=== PATIENT | female | born 1940 | race Caucasian/White ===

== ENCOUNTER 2017-01-25 11:05 | Outpatient (CLI) | payer MEDICARE, OTHER | END 2017-01-25 11:06 | disposition home or self-care (01) | DX: N28.9 Disorder of kidney and ureter, unspecified (principal); E74.39 Other disorders of intestinal carbohydrate absorption ==

== ENCOUNTER 2017-02-24 09:30 | Outpatient (CLI) | payer MEDICARE, OTHER ==
[2017-02-26 21:53] LABS: TEST RESULT REPORT (())
== END 2017-02-24 09:31 | disposition home or self-care (01) ==
LOC: LAB.R 09:30
PROVIDERS: ATTEND Family Medicine
DX: R19.7 Diarrhea, unspecified (principal)
CPT/HCPCS: 81599; 87045; 87046; 87177; 87209; 87329; 87493

== ENCOUNTER 2017-08-30 08:00 | Outpatient (CLI) | payer MEDICARE, OTHER | END 2017-08-30 08:01 | disposition home or self-care (01) | LOC: LAB.R 08:00 | PROVIDERS: ATTEND Registered Nurse | DX: N39.498 Other specified urinary incontinence (principal) | CPT/HCPCS: 87086 ==

== ENCOUNTER 2017-11-24 16:23 | Outpatient (CLI) | payer MEDICARE, OTHER | END 2017-11-24 23:59 | disposition home or self-care (01) | LOC: LAB.R 16:23 | PROVIDERS: ATTEND Registered Nurse | DX: R32 Unspecified urinary incontinence (principal) | CPT/HCPCS: 87086 ==

== ENCOUNTER 2017-12-13 08:00 | Outpatient (CLI) | payer MEDICARE, OTHER | END 2017-12-13 23:59 | disposition home or self-care (01) | LOC: LAB.R 08:00 | PROVIDERS: ATTEND Registered Nurse | DX: R30.0 Dysuria (principal) | CPT/HCPCS: 87086 ==

== ENCOUNTER 2018-06-15 07:10 | Observation (INO) | payer MEDICARE, OTHER ==
--- NOTE | 2018-06-15 07:39 | ED Physician Documentation ---
History of Present Illness - Stated complaint Stated Complaint: JAW/STOMACH PX - Chief complaint Chief Complaint: General - Additonal information Additional information: hx from pt 78 female pmhx HTN HLD 4 AM developed "knots in my stomach", L shoulder, R jaw pain, nausea no soa or diaphoresis she attributes to her recent flu shot sx have subsided but not gone yet no bad food no travel no leg swelling still has GB at ham and cheese sanswiches last night no hx CAD all to sulfa Review of Systems Constitutional: denies: Fever, Chills Nose: reports: Other (jaw pain) Cardiac: denies: Chest pain / pressure Respiratory: denies: Dyspnea GI: reports: Abdominal Pain, Nausea Musculoskeletal: reports: Joint pain (shoulder pain). denies: Back pain Endocrine: denies: Easy bruising / bleeding Immunocompromised: denies: Immunocompromised PD PAST MEDICAL HISTORY - Present Medications Home Medications: Ambulatory Orders Medication Instructions Recorded Confirmed Chlorthalidone 25 mg PO DAILY 06/15/18 06/15/18 Fluticasone [Flonase] 2 spray VIKA DAILY PRN 06/15/18 06/15/18 Gemfibrozil 600 mg PO 0730,1630 06/15/18 06/15/18 Lisinopril 20 mg PO DAILY 06/15/18 06/15/18 Oxybutynin Chloride [Ditropan Xl] 10 mg PO DAILY 06/15/18 06/15/18 Ropinirole HCl 1 mg PO QPM 06/15/18 06/15/18 Rosuvastatin Calcium 10 mg PO QPM 06/15/18 06/15/18 - Allergies Allergies/Adverse Reactions: Allergies Allergy/AdvReac Type Severity Reaction Status Date / Time Sulfa (Sulfonamide AdvReac Nausea Verified 06/15/18 08:21 Antibiotics) PD ED PE NORMAL - Vitals Vital signs reviewed: Yes - General General: Alert and oriented X 3 - HEENT HEENT: PERRL - Neck Neck: Supple, no meningeal sign - Cardiac Cardiac: RRR - Respiratory Respiratory: No respiratory distress, Clear bilaterally - Abdomen Abdomen: Soft, Other (TTP RUQ neg murphys) - Derm Derm: Normal color - Extremities Extremities: No edema, No calf tenderness / cord - Neuro Neuro: Alert and oriented X 3 Results - Vitals Vitals: Vital Signs - 24 hr 06/15/18 06/15/18 06/15/18 07:16 08:38 10:50 Temperature 37 C 36.8 C Heart Rate 77 63 65 Respiratory 17 15 20 Rate Blood Pressure 152/75 H 140/69 H 120/67 O2 Saturation 96 99 98 06/15/18 13:23 Temperature Heart Rate 63 Respiratory 18 Rate Blood Pressure 141/71 H O2 Saturation 99 Oxygen O2 Source Room air - EKG (time done) 0739 Rate: Rate (enter#) (63) Rhythm: NSR [place]: Normal Intervals: Normal [place] QRS: Normal Ischemia: Normal ST segments - Labs Labs: Laboratory Tests 06/15/18 06/15/18 06/15/18 07:33 07:33 07:33 WBC 3.7 L RBC 4.28 Hgb 13.2 Hct 37.8 MCV 88.3 MCH 30.9 MCHC 34.9 RDW 13.0 Plt Count 224 MPV 7.5 L Neut # (Auto) 3.0 Lymph # (Auto) 0.4 L [place] # (Auto) 0.2 Eos # (Auto) 0.1 Baso # (Auto) 0.0 Absolute Nucleated RBC 0.00 Nucleated RBC % 0.0 Sodium 135 Potassium 3.8 Chloride 101 Carbon Dioxide 23 Anion Gap 11.0 BUN 27 H Creatinine 1.0 Estimated GFR (MDRD) 54 L Glucose 130 H Calcium 10.1 Total Bilirubin 1.1 H AST 19 ALT 16 Alkaline Phosphatase 74 Troponin I < 0.04 Total Protein 7.3 Albumin 4.4 Globulin 2.9 Albumin/Globulin Ratio 1.5 Lipase 37 - Rads (name of study) CXR Radiology: See rad report (NACPD) CTAP Radiology: See rad report (no acute process, absent R kidney, 3.8 cm R ovarian cyst rec outpt sono follow up) ruq sono Radiology: See rad report (no biliary dz) PD MEDICAL DECISION MAKING - ED course ED course: epigastric pain rad to shoulder and jaw with associated nausea EKG s ischemia 1st trop approx 3 hr post onset neg CXR CT sono show no bilairy dz AAA etc as alternate cause for sx concern for ACS will req obs for serial CE echo etc pt madvised of ovarian cyst and need for up sono pain resolved now gave asa - Sepsis Event Vital Signs: Vital Signs - 24 hr 09/06/15/18 06/15/18 07:16 08:38 10:50 Temperature 37 C 36.8 C Heart Rate 77 63 65 Respiratory 17 15 20 Rate Blood Pressure 152/75 H 140/69 H 120/67 O2 Saturation 96 99 98 06/15/18 13:23 Temperature Heart Rate 63 Respiratory 18 Rate Blood Pressure 141/71 H O2 Saturation 99 Oxygen O2 Source Room air Departure - Departure Disposition: ED Place in Observation Clinical Impression: Epigastric pain, Jaw pain Shoulder pain, acute Qualifiers: Laterality: left Qualified Code(s): M25.512 - Pain in left shoulder Condition: Good Discharge Date/Time: 06/15/18 15:52
[2018-06-15 07:40] LABS: EOSINOPHILS # (AUTO) 0.1 10^3/uL (0.0-0.7); EOSINOPHILS % (AUTO) 1.5 %; HGB - HEMOGLOBIN 13.2 g/dL (12.0-16.0); LYMPHOCYTES # (AUTO) 0.4 10^3/uL (1.5-3.5); LYMPHOCYTES % (AUTO) 10.7 %; MEAN CORPUSCULAR HEMOGLOBIN 30.9 pg (27.0-31.0); MEAN CORPUSCULAR HGB CONC 34.9 g/dL (32.0-36.0); MEAN CORPUSCULAR VOLUME 88.3 fL (81.0-99.0); MEAN PLATELET VOLUME 7.5 fL (7.9-10.8); MONOCYTES # (AUTO) 0.2 10^3/uL (0.0-1.0); NEUTROPHILS % (AUTO) 80.8 %; PLT - PLATELET COUNT 224 10^3/uL (130-450); RED BLOOD COUNT 4.28 10^6/uL (4.20-5.40); WHITE BLOOD COUNT 3.7 x10^3/uL (4.8-10.8)
[2018-06-15] MEDS ORDERED: ONDANSETRON 4 MG/2 ML VIAL IVP STA ×2 (07:40→13:15)
[2018-06-15] MEDS ORDERED: MORPHINE 2 MG/ML CARPUJECT IVP STA (07:40)
[2018-06-15 07:59] LABS: ALBUMIN 4.4 g/dL (3.2-5.5); ALBUMIN/GLOBULIN RATIO 1.5 (1.0-2.2); BILIRUBIN,TOTAL 1.1 mg/dL (0.2-1.0); CALCIUM 10.1 mg/dL (8.5-10.3); TOTAL PROTEIN 7.3 g/dL (6.7-8.2)
--- NOTE | 2018-06-15 08:04 | XRAY Report ---
Reason: chest pain Procedure Date: 06/15/2018 Accession Number: [id number] / [id number] Procedure: XR - Chest 1 View X-Ray CPT Code: 99867 FULL RESULT: EXAM: CHEST RADIOGRAPHY EXAM DATE: 06/15/2018 07:46 AM. CLINICAL HISTORY: Chest pain. COMPARISON: CHEST 2 VIEW PA/LAT 11/07/2014 1:27 PM. TECHNIQUE: 1 view. FINDINGS: Lungs/Pleura: No focal opacities evident. No pleural effusion. No pneumothorax. Mediastinum: Within exam limitations, the cardiomediastinal contour is normal. Other: Bilateral shoulder arthroplasty hardware is partially visualized. No acute osseous abnormality. IMPRESSION: No acute cardiopulmonary abnormality. RADIA
--- NOTE | 2018-06-15 08:16 | CT Report ---
Reason: upper abd pain rad to shoulder Procedure Date: 06/15/2018 Accession Number: [id number] / [id number] Procedure: CT - Abdomen/Pelvis W/O CPT Code: FULL RESULT: EXAM: CT ABDOMEN AND PELVIS WITHOUT CONTRAST EXAM DATE: 06/15/2018 07:53 AM. CLINICAL HISTORY: Upper abdominal pain radiating to left shoulder. COMPARISONS: LUMBAR SPINE COMPLETE 02/16/2018 8:42 AM. TECHNIQUE: Routine helical CT imaging was performed through the abdomen and pelvis. IV contrast: None. Enteric contrast: No. Reconstructions: Coronal and sagittal. In accordance with CT protocol optimization, one or more of the following dose reduction techniques were utilized for this exam: automated exposure control, adjustment of mA and/or KV based on patient size, or use of iterative reconstructive technique. FINDINGS: Lung Bases: Unremarkable. Liver: Unremarkable noncontrast appearance. Gallbladder/Bile Ducts: Unremarkable. Spleen: Unremarkable. Pancreas: Unremarkable. Adrenal Glands: Unremarkable. Kidneys: The right kidney is absent. There are no surgical clips at the expected occasion of the right kidney, which may indicate congenital absence. The left kidney is unremarkable. No left hydronephrosis or calculi. Peritoneal Cavity/Bowel: Unremarkable. No free fluid, free air or adenopathy. No evidence of bowel obstruction or abnormal colonic stool burden. The appendix is not visualized, but there is no inflammatory change or fluid adjacent to the cecum to suggest acute appendicitis. Pelvic Organs: The bladder is unremarkable. The uterus appears to be surgically absent. There is a right adnexal cyst measuring 3.8 x 3.2 cm (series 3 image 65). Vasculature: No aneurysms or other significant abnormality. Bones: No acute osseous abnormality or bone lesion. There is moderate degenerative disk change at the L5-S1 level. There is mild degenerative osteoarthritis of the bilateral hips. Other: None. IMPRESSION: 1. No acute inflammatory or obstructive abnormality apparent on this noncontrast exam. 2. 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 The left kidney is unremarkable. 3. Right adnexal cyst measuring up to 3.8 cm. Further evaluation is recommended with nonemergent pelvic ultrasound. Management above is based on recommendations outlined in an ACR White Paper: Emiliano Reyes et al. Managing Incidental Findings on Abdominal and Pelvic CT and MRI, Part 1: White Paper of the ACR Incidental Findings Committee II on Adnexal Findings. Journal of the [employer] 10, 675-681 (2013). RADIA
[2018-06-15] MEDS ORDERED: HYDROmorphone 1 MG/ML CARPUJECT IVP STA (09:16)
--- NOTE | 2018-06-15 10:51 | Ultrasound Report ---
Reason: epigastric pain elev bili Procedure Date: 06/15/2018 Accession Number: [id number] / [id number] Procedure: US - Abdomen Limited CPT Code: FULL RESULT: EXAM: ABDOMEN ULTRASOUND LIMITED, RUQ EXAM DATE: 06/15/2018 09:48 AM. CLINICAL HISTORY: Epigastric pain elev bili. COMPARISON: CT 06/15/2018. TECHNIQUE: Real-time scanning was performed with static images obtained. FINDINGS: Liver: Homogeneous without focal mass. 16.5 cm. Main portal vein flow: Hepatopetal. Gallbladder: No stones, wall thickening, or sonographic Triana's sign. Biliary System: CBD measures 3.6 mm. No intrahepatic or extrahepatic ductal dilatation. Other: Right kidney is surgically absent. IMPRESSION: 1. No cholelithiasis or biliary ductal dilation. RADIA
[2018-06-15] MEDS ORDERED: ASPIRIN CHEW 81 MG TABLET PO STA (12:57)
[2018-06-15] MEDS ORDERED: SODIUM CHLORIDE FLUSH 0.9% 10 ML SYRINGE IVP PRN (14:48)
--- NOTE | 2018-06-15 15:10 | HISTORY & PHYSICAL EXAMINATION ---
Chief Complaint - Chief Complaint Chief Complaint: left shoulder, jaw pain, nausea History of Present Illness - Admitted From Admitted From:: ED - History Obtained From Records Reviewed: yes History obtained from: chart review, patient Exam Limitations: none - History of Present Illness HPI Comment/Other: Ileana Ruiz is a 78-year old female with a past medical history of hypertension, hyperlipidemia, restless leg syndrome, urinary incontinence, status post right kidney removal at age 13, bilateral should arthroplasty, shingles, pneumonia, seasonal allergies, and chronic low back pain. The patient received an influenza vaccination yesterday from her PCP in preparation for a trip to the [facility]. The last time that she got this shot, she remembers similar symptoms that she had today upon presentation to the ED. The patient states that she had problems falling asleep last evening as her bilateral jaw w as feeling sore. She awoke about 4AM, and she continued to have jaw pain, now accompanied by low mid-sternal epi-gastric pain. She states that she did not eat anything out of her normal last night. Since the pain did not subside, she presented to the ED. She was given aspirin in the ED, and her pain resolved. She denied any associated symptoms at the time of her chest pain, such as nausea, diaphoresis, dizziness, headaches, numbness or tingling to extremities, changes in vision or hearing, or shortness of breath. Labs showed no abnormalities in her CBC, and an elevated BUN of 27, a decreased GFR of 54, an elevated glucose of 130, an elevated bilirubin of 1.1 and a negative troponin. Upon exam the patient has no abnormal findings, and has had a resolution of her jaw and chest discomfort. She will be admitted to observation for serial troponins and an echocardiogram. History - Past Medical History Cardiovascular: reports: Hypertension, High cholesterol Respiratory: reports: Pneumonia, Other (sinusitis) Neuro: reports: None Endocrine/Autoimmune: reports: None GI: reports: GERD CYBERATHLETE: reports: Fibroids : reports: Chronic bladder infection, Nocturia, Frequency HEENT: reports: Chronic sinusitis Psych: reports: None Musculoskeletal: reports: Osteoarthritis MRSA Hx?: No Other Past Medical History: restless legs - Past Surgical History General: reports: Appendectomy, Other Ortho: reports: Shoulder arthroplasty /CYBERATHLETE: reports: Hysterectomy HEENT: reports: Tonsil/Adenoidectomy - Family & Social History Family History: Mother: , Father: , Sister: Alive and Well Family History Comment/Other: The patient's mother of natural causes at age 94, her father at a young age in an accident, but his father had cardiac disease. She has one sister who had lung cancer caused by frequent x-rays as a child, and is alive and well. Living arrangement: At home Living Situation: With spouse/s.o. 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 She is to her , Yeyo. They had 2 biological children and adopted 3 others. They live independently. The patient denies tobacco, alcohol, or illicit drug use. She wishes to be a full code. - Substance History Use: Uses substance without health or social issues: NONE Abuse: Recurrent use of substance despite neg consequences: NONE Dependence: Experiences withdrawal or developed tolerances: NONE - POLST Patient has POLST: No POLST Status: Full Code Meds/Allgy - Home Medications Home Medications: Ambulatory Orders Medication Instructions Recorded Confirmed Chlorthalidone 25 mg PO DAILY 06/15/18 06/15/18 Fluticasone [Flonase] 2 spray VIKA DAILY PRN 06/15/18 06/15/18 Gemfibrozil 600 mg PO 0730,1630 06/15/18 06/15/18 Lisinopril 20 mg PO DAILY 06/15/18 06/15/18 Oxybutynin Chloride [Ditropan Xl] 10 mg PO DAILY 06/15/18 06/15/18 Ropinirole HCl 1 mg PO QPM 06/15/18 06/15/18 Rosuvastatin Calcium 10 mg PO QPM 06/15/18 06/15/18 - Allergies Allergies/Adverse Reactions: Allergies Allergy/AdvReac Type Severity Reaction Status Date / Time Sulfa (Sulfonamide AdvReac Nausea Verified 06/15/18 08:21 Antibiotics) Review of Systems - Eyes Eyes: reports: Corrective lenses - Ears, Nose & Throat Ears, Nose & Throat: reports: Nasal congestion, Postnasal drainage - Respiratory Respiratory: reports: Cough - Gastrointestinal Gastrointestinal: reports: Reflux/heartburn - Genitourinary Genitourinary: reports: Dysuria, Incontinence, Nocturia - Musculoskeletal Musculoskeletal: reports: Back pain - Hematologic/Lymphatic Hematologic/Lymphatic: reports: Recurrent infections - All Other Systems All Other Systems: reports: Reviewed and negative Prior Level of Functionality: Independent without assisting devices. Exam - Vital Signs Reviewed Vital Signs: Yes Vital Signs: Vital Signs x48h Temp Pulse Resp BP Pulse Ox 06/15/18 13:23 63 18 141/71 H 99 06/15/18 10:50 36.8 C 65 20 120/67 98 06/15/18 08:38 63 15 140/69 H 99 06/15/18 07:16 37 C 77 17 152/75 H 96 - Physical Exam General Appearance: positive: No acute distress, Alert Eyes Bilateral: positive: Normal inspection, PERRL ENT: positive: ENT inspection nml, Pharynx nml, No signs of dehydration Neck: positive: Nml inspection, Thyroid nml, No JVD, Trachea midline Respiratory: positive: Chest non-tender, No respiratory distress, Breath sounds nml Cardiovascular: positive: Regular rate & rhythm, No murmur, No gallop Peripheral Pulses: positive: 2+ Abdomen: positive: Non-tender, No organomegaly, Nml bowel sounds, No distention Back: positive: Nml inspection Skin: positive: Color nml, No rash, Warm, Dry Extremities: positive: Non-tender, Full ROM, Nml appearance, No pedal edema Neurologic/Psychiatric: positive: Oriented x3, CN's nml (2-12), Motor nml, Sensation nml, Mood/affect nml Reflexes: Bicep (R): 3+, Bicep (L): 3+ Conclusion/Plan - Problem List (1) Chest pain Conclusion/Plan: The patient states that she had less severe, similar symptoms after receiving an influenza vaccine that was about 5 years ago. The patient just got a flu shot yesterday, and by last evening began having bilateral jaw pain after lying down at bedtime. This pain did not keep her awake and she fell asleep until this morning at 4AM. The jaw pain was still present, and now she had epi-gastric, low mid-chest pain that was sharp and did not go away. She presented to the ED, was given aspirin, and upon my exam is pain free. Her first troponin was negative. Plan: Keep in observation overnight and obtain an echocardiogram, serial troponins, telemetry. (2) Adverse reaction to vaccine Conclusion/Plan: The patient states that for the past 2 times after getting an influenza vaccine, she has had adverse reactions. Plan: Advise further workup with PCP. Qualifiers: Encounter type: subsequent encounter Qualified Code(s): T50.Z95D - Adverse effect of other vaccines and biological substances, subsequent encounter (3) Restless leg syndrome Conclusion/Plan: The patient has had this for several years and is prescribed ropinirole at home. I have continued this for hospital use. Plan: Continue to monitor, give home med. (4) Hypertension Conclusion/Plan: The patient is prescribed lisinopril at home and upon admission she was noted to have a blood pressure of 120/67. Plan: Continue home meds, and monitor vital signs. Qualifiers: Hypertension type: essential hypertension Qualified Code(s): I10 - Essential (primary) hypertension (5) Hyperlipidemia Conclusion/Plan: The patient is prescribed a statin at home, which has been continued here. She is also prescribed gemfibrozil, so I will check a triglyceride level. She is noted to have an elevated glucose level of 130 upon admission. Plan: Check labs, and continue meds. (6) Urinary incontinence Conclusion/Plan: The patient has a history of a hysterectomy and has had urinary incontinence for the past few years. She states that she has also suffered from frequent UTIs, but denies current dysuria. She is prescribed oxybutynin at home, which continues here. She also attends a therapist for this to strengthen her pelvic floor muscles. Plan: Continue med, and monitor. (7) Sinusitis Conclusion/Plan: The patient is prescribed Flonase at home and admits to both seasonal allergies and this condition for several years. Plan: Continue med. Qualifiers: Sinusitis location: unspecified location - Lab Results Lab results reviewed: Yes Fish Bones: 06/16/18 05:51 06/16/18 05:51 - Diagnostic Imaging Results Diagnostic Imaging Results: positive: Prelim report reviewed Core Measures - Anticipated LOS I expect patient to be DC'd or transferred within 96 hours.: Yes - DVT/VTE - Prophylaxis VTE/DVT Device ordered at admit?: Yes VTE/DVT Prophylaxis med ordered at admit?: No Not Ordered - Medical Reason: Contraindicated - Stroke - Rehab Assessment Rehab services assessment to be ordered?: No Not Ordered - Medical Reason: Contraindicated - AMI - Statin at Admit Aspirin Prescribed on Admit: Yes
[2018-06-15] MEDS ORDERED: MORPHINE 2 MG/ML CARPUJECT IVP PRN (15:51)
[2018-06-15] MEDS ORDERED: FLUTICASONE NASAL SPRAY NAS PRN (15:52)
[2018-06-15] MEDS: GEMFIBROZIL 600 MG TABLET PO SCH (16:49)
[2018-06-15] MEDS: GI COCKTAIL 120 ML BOTTLE PO SCH ×2 (16:49→21:05)
[2018-06-15] MEDS: SODIUM CHLORIDE FLUSH 0.9% 10 ML SYRINGE IVP SCH (16:49)
[2018-06-15 19:49] LABS: HB2 TOTAL 13.5 g/dL; HEMOGLOBIN A1C 0.56 g/dL; HEMOGLOBIN A1C % 5.9 % (4.6-6.2)
[2018-06-15] MEDS ORDERED: rOPINIRole 1 MG TABLET PO SCH (21:00)
[2018-06-15] MEDS ORDERED: ATORVASTATIN 10 MG TABLET PO SCH (21:00)
[2018-06-15] MEDS ORDERED: GI COCKTAIL 120 ML BOTTLE PO PRN (21:59)
[2018-06-16] MEDS: SODIUM CHLORIDE FLUSH 0.9% 10 ML SYRINGE IVP SCH ×2 (00:54→08:47)
[2018-06-16 06:12] LABS: BASOPHILS % (AUTO) 0.8 %; EOSINOPHILS % (AUTO) 4.6 %; HGB - HEMOGLOBIN 11.8 g/dL (12.0-16.0); LYMPHOCYTES % (AUTO) 46.1 %; MEAN CORPUSCULAR HEMOGLOBIN 31.2 pg (27.0-31.0); MEAN CORPUSCULAR HGB CONC 35.3 g/dL (32.0-36.0); MEAN CORPUSCULAR VOLUME 88.4 fL (81.0-99.0); MEAN PLATELET VOLUME 7.5 fL (7.9-10.8); MONOCYTES % (AUTO) 14.9 %; NEUTROPHILS % (AUTO) 33.6 %; PLT - PLATELET COUNT 182 10^3/uL (130-450); RED BLOOD COUNT 3.78 10^6/uL (4.20-5.40); RED CELL DISTRIBUTION WIDTH 13.2 % (12.0-15.0); WHITE BLOOD COUNT 2.3 x10^3/uL (4.8-10.8)
[2018-06-16 06:22] LABS: BAND NEUTROPHILS % (MANUAL) 0 %
[2018-06-16] MEDS: GEMFIBROZIL 600 MG TABLET PO SCH (06:28)
[2018-06-16 06:31] LABS: ALBUMIN 3.6 g/dL (3.2-5.5); ALBUMIN/GLOBULIN RATIO 1.4 (1.0-2.2); ALKALINE PHOSPHATASE 57 IU/L (42-121); ALT ALANINE AMINOTRANSFERASE 14 IU/L (10-60); AST ASPARTATE AMINOTRANSFERASE 18 IU/L (10-42); BILIRUBIN,TOTAL 0.4 mg/dL (0.2-1.0); BUN - BLOOD UREA NITROGEN 26 mg/dL (6-20); CALCIUM 9.4 mg/dL (8.5-10.3); CARBON DIOXIDE - CO2 26 mmol/L (21-32); CHLORIDE 101 mmol/L (101-111); CHOL/HDL RATIO 2.6 (<4.4); CHOLESTEROL 142 mg/dL; GFR - MDRD 54 (>89); GLUCOSE 109 mg/dL (70-100); HDL CHOLESTEROL 54 mg/dL; LDL CHOLESTEROL,CALCULATED 77 mg/dL; LDL/HDL RATIO 1.4 (<4.4); SODIUM 135 mmol/L (135-145); TOTAL PROTEIN 6.2 g/dL (6.7-8.2); VLDL CHOLESTEROL 11 mg/dL
[2018-06-16 06:51] LABS: ABNORMAL LYMPHS % (MANUAL) 1 %; EOSINOPHILS # (MANUAL) 0.2 10^3/uL (0-0.7); LYMPHOCYTES # (MANUAL) 1.1 10^3/uL (1.5-3.5); LYMPHOCYTES % (MANUAL) 48 %; METAMYELOCYTES % (MANUAL) 1 %; MONOCYTES # (MANUAL) 0.3 10^3/uL (0.0-1.0); NEUTROPHILS # (MANUAL) 0.7 10^3/uL (1.5-6.6); NEUTROPHILS % (MANUAL) 30 %; RBC MORPHOLOGY (MULTIPLE) NORMAL APPEARANCE (NORMAL)
[2018-06-16 06:52] LABS: DIFFERENTIAL COMMENT MANUAL DIFFERENTIAL; PLATELET ESTIMATE, MANUAL NORMAL (130-450,000) (NORMAL)
[2018-06-16 07:46] VITALS: BP 129/64
[2018-06-16] MEDS ORDERED: TOLTERODINE LA 2 MG CAPSULE PO SCH (09:00)
[2018-06-16] MEDS ORDERED: LISINOPRIL 20 MG TABLET PO SCH (09:00)
[2018-06-16] MEDS ORDERED: POLYETHYLENE GLYCOL 3350 17 GM PACKET PO SCH (09:00)
--- NOTE | 2018-06-16 10:09 | Discharge Plan ---
Discharge Plan Disposition: 01 Home, Self Care Condition: Good Diet: Regular Activity Restrictions: No Restrictions Shower Restrictions: No Driving Restrictions: No Weight Bearing: Full Weight Additional Instructions or Follow Up instructions: You were admitted with jaw and mid-epigastric pain, that was resolved with aspirin. You were monitored overnight, had 3 negative cardiac blood tests, and an echocardiogram was completed which shows no evidence of damage. If you find that you have heart burn symptoms, you can take over the counter Prilosec and Zantac. Please avoid further influenza vaccines and you may benefit for further work up. Please see your PCP within one week. No Smoking: If you smoke, Please STOP! Call for help. Follow-up with: Estephania Howard MD [Primary Care Provider] -
--- NOTE | 2018-06-16 10:12 | DISCHARGE SUMMARY ---
Discharge Summary Admit Date: 06/15/18 Discharge Date: 06/16/18 Discharging Provider: UNRULY Ram Primary Care Provider: Estephania Howard Code Status: Attempt Resuscitation Condition at Discharge: Good Discharge Disposition: 01 Home, Self Care - DIAGNOSES Admission Diagnoses: Chest pain, unspecified (R07.9) Adverse effect of other vaccines and biological substances, initial encounter (T50.Z95A) Restless legs syndrome (G25.81) Essential (primary) hypertension (I10) Hyperlipidemia, unspecified (E78.5) Unspecified urinary incontinence (R32) Chronic sinusitis, unspecified (J32.9) Discharge Diagnoses with Status of Each Condition: Chest pain (R07.9) resolved. Restless leg syndrome (G25.81) chronic, stable. Hypertension (I10) chronic, stable. Hyperlipidemia (E78.5) chronic, stable. Urinary incontinence (R32) chronic, stable. Adverse reaction to vaccine (T50.Z95A) 2nd episode, stable. Sinusitis (J32.9)chronic, stable. - HPI History of Present Illness: Ileana Ruiz is a 78-year old female with a past medical history of hypertension, hyperlipidemia, restless leg syndrome, urinary incontinence, status post right kidney removal at age 13, bilateral should arthroplasty, shingles, pneumonia, seasonal allergies, and chronic low back pain. The patient received an influenza vaccination yesterday from her PCP in preparation for a trip to the [facility]. The last time that she got this shot, she remembers similar symptoms that she had today upon presentation to the ED. The patient states that she had problems falling asleep last evening as her bilateral jaw was feeling sore. She awoke about 4AM, and she continued to have jaw pain, now accompanied by low mid-sternal epi-gastric pain. She states that she did not eat anything out of her normal last night. Since the pain did not subside, she presented to the ED. She was given aspirin in the ED, and her pain resolved. She denied any associated symptoms at the time of her chest pain, such as nausea, diaphoresis, dizziness, headaches, numbness or tingling to extremities, changes in vision or hearing, or shortness of breath. Labs showed no abnormalities in her CBC, and an elevated BUN of 27, a decreased GFR of 54, an elevated glucose of 130, an elevated bilirubin of 1.1 and a negative troponin. Upon exam the patient has no abnormal findings, and has had a resolution of her jaw and chest discomfort. She will be admitted to observation for serial troponins and an echocardiogram. - HOSPITAL COURSE Hospital Course: (1) Chest pain The patient states that she had less severe, similar symptoms after receiving an influenza vaccine that was about 5 years ago. The patient just got a flu shot yesterday, and by last evening began having bilateral jaw pain after lying down at bedtime. This pain did not keep her awake and she fell asleep until this morning at 4AM. The jaw pain was still present, and now she had epi-gastric, low mid-chest pain that was sharp and did not go away. She presented to the ED, was given aspirin, and upon my exam is pain free. Serial troponins x3 were all negative. The patient was keep in observation overnight and monitored on telemetry. She underwent an echocardiogram, and preliminary results show no abnormalities. The patient was free of pain at the time of discharge and denied any episodes since being in the ED. The patient was encouraged to take over the counter PPIs or H2 blockers for heart burn. (2) Adverse reaction to vaccine The patient states that for the past 2 times after getting an influenza vaccine, she has had adverse reactions. She has been encouraged to get further work up with her PCP. (3) Restless leg syndrome The patient has had this for several years and is prescribed ropinirole at home. This condition is stable. (4) Hypertension The patient is prescribed lisinopril at home and upon admission she was noted to have a blood pressure of 120/67. There were no changes made to her antihypertensives. (5) Hyperlipidemia The patient is prescribed a statin at home, which has been continued here. She is also prescribed gemfibrozil, so I will check a triglyceride level. She is noted to have an elevated glucose level of 130 upon admission. She has a normal triglyceride level of 60, normal lipid panel and a normal TSH of 3.79. (6) Urinary incontinence The patient has a history of a hysterectomy and has had urinary incontinence for the past few years. She states that she has also suffered from frequent UTIs, but denies current dysuria. She is prescribed oxybutynin at home, which continues here. She also attends a therapist for this to strengthen her pelvic floor muscles. (7) Sinusitis The patient is prescribed Flonase at home and admits to both seasonal allergies and this condition for several years. Disposition: The patient was anxious to return home and she is planning on traveling to the [facility]. The patient did not require oxygen, was ambulatory, and no longer had chest pain or jaw pain. - ALLERGIES Allergies/Adverse Reactions: Allergies Allergy/AdvReac Type Severity Reaction Status Date / Time Sulfa (Sulfonamide AdvReac Nausea Verified 06/15/18 08:21 Antibiotics) - MEDICATIONS Home Medications: Ambulatory Orders Medication Instructions Recorded Confirmed Chlorthalidone 25 mg PO DAILY 06/15/18 06/15/18 Fluticasone [Flonase] 2 spray VIKA DAILY PRN 06/15/18 06/15/18 Gemfibrozil 600 mg PO 0730,1630 06/15/18 06/15/18 Lisinopril 20 mg PO DAILY 06/15/18 06/15/18 Oxybutynin Chloride [Ditropan Xl] 10 mg PO DAILY 06/15/18 06/15/18 Ropinirole HCl 1 mg PO QPM 06/15/18 06/15/18 Rosuvastatin Calcium 10 mg PO QPM 06/15/18 06/15/18 - PHYSICAL EXAM AT DISCHARGE General Appearance: positive: No acute distress, Alert Eyes Bilateral: positive: Normal inspection, PERRL ENT: positive: ENT inspection nml, Pharynx nml, No signs of dehydration Neck: positive: Nml inspection, Thyroid nml, No JVD, Trachea midline Respiratory: positive: Chest non-tender, No respiratory distress, Breath sounds nml Cardiovascular: positive: Regular rate & rhythm, No murmur, No gallop Peripheral Pulses: positive: 2+ Abdomen: positive: Non-tender, No organomegaly, Nml bowel sounds, Other (rounded, soft) Back: positive: Nml inspection Skin: positive: Color nml, No rash, Warm, Dry Extremities: positive: Non-tender, Full ROM, Nml appearance, No pedal edema Neurologic/Psychiatric: positive: Oriented x3, CN's nml (2-12), Motor nml, Sensation nml, Mood/affect nml Reflexes: Bicep (R): 4+, Bicep (L): 4+ - LABS Result Diagrams: 06/16/18 05:51 06/16/18 05:51 - DIAGNOSTIC IMAGING Diagnostic Imaging Results: Final report reviewed Diagnostic Imaging Results Comments: EXAM: CHEST RADIOGRAPHY EXAM DATE: 06/15/2018 07:46 AM. IMPRESSION: No acute cardiopulmonary abnormality. EXAM: CT ABDOMEN AND PELVIS WITHOUT CONTRAST EXAM DATE: 06/15/2018 07:53 AM. IMPRESSION: 1. No acute inflammatory or obstructive abnormality apparent on this noncontrast exam. 2. 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 The left kidney is unremarkable. 3. Right adnexal cyst measuring up to 3.8 cm. Further evaluation is recommended with nonemergent pelvic ultrasound. Management above is based on recommendations outlined in an ACR EXAM: ABDOMEN ULTRASOUND LIMITED, RUQ EXAM DATE: 06/15/2018 09:48 AM. IMPRESSION: 1. No cholelithiasis or biliary ductal dilation. ECHOCARDIOGRAM: Preliminary results 06/16/18 Overall LV systolic function is normal with an EF of 65-70%. No obvious valve abnormalities. - FOLLOW UP Follow Up: Disposition: 01 Home, Self Care Condition: Good Diet: Regular Activity Restrictions: No Restrictions Shower Restrictions: No Driving Restrictions: No Weight Bearing: Full Weight Additional Instructions or Follow Up instructions: You were admitted with jaw and mid-epigastric pain, that was resolved with a spirin. You were monitored overnight, had 3 negative cardiac blood tests, and an echocardiogram was completed which shows no evidence of damage. If you find that you have heart burn symptoms, you can take over the counter Prilosec and Zantac. Please avoid further influenza vaccines and you may benefit for further work up. Please see your PCP within one week. - TIME SPENT Time Spent in Discharge (Minutes): 50
== END 2018-06-16 11:24 | disposition home or self-care (01) ==
LOC: ED 07:10 → OBS 14:49
PROVIDERS: ADMIT Nurse Practitioner; ATTEND Nurse Practitioner
DX: R07.89 Other chest pain (principal); G25.81 Restless legs syndrome; R73.9 Hyperglycemia, unspecified; I10 Essential (primary) hypertension; E78.5 Hyperlipidemia, unspecified; R32 Unspecified urinary incontinence; J32.9 Chronic sinusitis, unspecified; G89.29 Other chronic pain; M54.9 Dorsalgia, unspecified; R35.0 Frequency of micturition; R35.1 Nocturia; T50.B95A Adverse effect of other viral vaccines, initial encounter; Y92.531 Health care provider office as the place of occurrence of the external cause; Z91.09 Other allergy status, other than to drugs and biological substances; N94.89 Other specified conditions associated with female genital organs and menstrual cycle; Z87.01 Personal history of pneumonia (recurrent); Z87.440 Personal history of urinary (tract) infections; Z90.79 Acquired absence of other genital organ(s); Z90.5 Acquired absence of kidney
CPT/HCPCS: 36415; 71045; 74176; 76705; 80053; 80061; 83036; 83690; 83735; 84443; 84478; 84484; 85025; 93005; 93306; 96374; 96375; 96376; 99284; A9270; G0378; J1170; 83721

== ENCOUNTER 2018-10-13 08:00 | Outpatient (CLI) | payer MEDICARE, OTHER ==
[2018-10-13 18:10] LABS: BILIRUBIN,URINE NEGATIVE (NEGATIVE); GLUCOSE, URINE (UA) NEGATIVE (NEGATIVE); KETONES,URINE (UA) NEGATIVE (NEGATIVE); LEUKOCYTE ESTERASE, URINE NEGATIVE (NEGATIVE); NITRITE,URINE NEGATIVE (NEGATIVE); OCCULT BLOOD,URINE TRACE-INTA (NEGATIVE); PROTEIN,URINE NEGATIVE (NEGATIVE); UROBILINOGEN,URINE 0.2 (NORMAL) E.U./dL (NORMAL)
[2018-10-13 18:11] LABS: CLARITY,URINE CLEAR (CLEAR)
== END 2018-10-13 23:59 | disposition home or self-care (01) ==
LOC: LAB.R 08:00
PROVIDERS: ATTEND Obstetrics & Gynecology
DX: R30.0 Dysuria (principal)
CPT/HCPCS: 81001; 81003; 87086

== ENCOUNTER 2018-10-23 16:37 | Outpatient (CLI) | payer MEDICARE, OTHER ==
--- NOTE | 2018-10-24 01:26 | Ultrasound Report ---
Reason: PELVIC PAIN, CHRONIC Procedure Date: 10/23/2018 Accession Number: [id number] / [id number] Procedure: US - Pelvic Complete CPT Code: FULL RESULT: EXAM: PELVIC ULTRASOUND EXAM DATE: 10/23/2018 04:59 PM. CLINICAL HISTORY: Pelvic pain, chronic. COMPARISON: ABDOMEN/PELVIS W/O 06/15/2018 7:52 AM. TECHNIQUE: Real-time transabdominal pelvic scan performed to identify the uterus and adnexa and as an overview of other pelvic structures, with static image documentation. Patient reportedly declined the transvaginal portion of the study. FINDINGS: Uterus: Removed. Ovaries: There is a known chronic right ovarian simple cyst, measuring 42 x 32 x 46 mm currently. No normal ovarian parenchyma seen. Left ovary not visualized but no left adnexal masses seen. Free Fluid: None. Other: None. IMPRESSION: 1. Chronic 4 cm right adnexal grossly simple cyst. SRU recommends annual follow-up in the postmenopausal patient. 2. Post hysterectomy. RADIA
== END 2018-10-23 16:38 | disposition home or self-care (01) ==
LOC: DI 16:37
PROVIDERS: ATTEND Obstetrics & Gynecology
DX: N94.89 Other specified conditions associated with female genital organs and menstrual cycle (principal); R10.2 Pelvic and perineal pain; Z90.710 Acquired absence of both cervix and uterus
CPT/HCPCS: 76856

== ENCOUNTER 2019-01-05 08:00 | Outpatient (CLI) | payer MEDICARE, OTHER | END 2019-01-05 23:59 | disposition home or self-care (01) | LOC: LAB.R 08:00 | PROVIDERS: ATTEND Obstetrics & Gynecology | DX: B37.3 Candidiasis of vulva and vagina (principal) | CPT/HCPCS: 87480; 87510; 87660 ==

== ENCOUNTER 2019-02-07 08:00 | Outpatient (CLI) | payer MEDICARE, OTHER ==
[2019-02-07 21:23] LABS: CANDIDA GROUP DNA NEGATIVE (NEGATIVE); CANDIDA KRUSEI DNA NEGATIVE (NEGATIVE); TRICHOMONAS VAGINALIS DNA NEGATIVE (NEGATIVE)
== END 2019-02-07 23:59 | disposition home or self-care (01) ==
LOC: LAB.R 08:00
PROVIDERS: ATTEND Obstetrics & Gynecology
DX: N76.6 Ulceration of vulva (principal)
CPT/HCPCS: 87661; 87801

== ENCOUNTER 2019-02-23 11:44 | Outpatient (CLI) | payer MEDICARE, OTHER | END 2019-02-23 11:45 | disposition home or self-care (01) | LOC: RT 11:44 | PROVIDERS: ATTEND Internal Medicine Gastroenterology | DX: R85.9 Unspecified abnormal finding in specimens from digestive organs and abdominal cavity (principal); I10 Essential (primary) hypertension | CPT/HCPCS: 93005 ==

== ENCOUNTER 2019-02-23 12:13 | Outpatient (CLI) | payer MEDICARE, OTHER ==
[2019-02-23 12:29] LABS: BASOPHILS % (AUTO) 0.8 %; EOSINOPHILS # (AUTO) 0.3 10^3/uL (0.0-0.7); EOSINOPHILS % (AUTO) 5.6 %; HGB - HEMOGLOBIN 12.7 g/dL (12.0-16.0); LYMPHOCYTES # (AUTO) 1.9 10^3/uL (1.5-3.5); LYMPHOCYTES % (AUTO) 38.8 %; MEAN CORPUSCULAR HEMOGLOBIN 30.1 pg (27.0-31.0); MEAN CORPUSCULAR HGB CONC 33.7 g/dL (32.0-36.0); MEAN CORPUSCULAR VOLUME 89.3 fL (81.0-99.0); MEAN PLATELET VOLUME 7.8 fL (7.9-10.8); MONOCYTES # (AUTO) 0.4 10^3/uL (0.0-1.0); MONOCYTES % (AUTO) 7.5 %; NEUTROPHILS # (AUTO) 2.4 10^3/uL (1.5-6.6); NEUTROPHILS % (AUTO) 47.3 %; PLT - PLATELET COUNT 254 10^3/uL (130-450); RED BLOOD COUNT 4.23 10^6/uL (4.20-5.40); RED CELL DISTRIBUTION WIDTH 13.3 % (12.0-15.0)
[2019-02-23 12:40] LABS: ALBUMIN 4.3 g/dL (3.2-5.5); ALBUMIN/GLOBULIN RATIO 1.5 (1.0-2.2); BILIRUBIN,TOTAL 0.9 mg/dL (0.2-1.0); CALCIUM 10.1 mg/dL (8.5-10.3); TOTAL PROTEIN 7.2 g/dL (6.7-8.2)
== END 2019-02-23 12:14 | disposition home or self-care (01) ==
LOC: LAB 12:13
PROVIDERS: ATTEND Internal Medicine Gastroenterology
DX: R19.5 Other fecal abnormalities (principal); I10 Essential (primary) hypertension
CPT/HCPCS: 36415; 80053; 85025

== ENCOUNTER 2019-02-26 06:03 | Day surgery (SDC) | payer MEDICARE, OTHER ==
[2019-02-26] MEDS ORDERED: LACTATED RINGERS 1,000 ML IV ONE (06:53)
[2019-02-26] MEDS ORDERED: fentaNYL 100 MCG/2 ML VIAL IVP ONE (08:30)
[2019-02-26] MEDS ORDERED: MIDAZOLAM 2 MG/2 ML VIAL IVP ONE (08:30)
[2019-02-26 10:20] VITALS: BP 122/75
== END 2019-02-26 06:04 | disposition home or self-care (01) ==
LOC: SDS 06:03
PROVIDERS: ATTEND Internal Medicine Gastroenterology
PROC: 0DBN8ZZ Excision of Sigmoid Colon, Via Natural or Artificial Opening Endoscopic (ICD-10-PCS; principal; 2019-02-26 07:30)
DX: R19.5 Other fecal abnormalities (principal); D12.5 Benign neoplasm of sigmoid colon; K57.30 Diverticulosis of large intestine without perforation or abscess without bleeding; I10 Essential (primary) hypertension
CPT/HCPCS: 45380; J7120

== ENCOUNTER 2019-05-03 08:00 | Outpatient (CLI) | payer MEDICARE, OTHER ==
[2019-05-03 19:17] LABS: BASOPHILS % (AUTO) 1.1 %; EOSINOPHILS # (AUTO) 0.3 10^3/uL (0.0-0.7); EOSINOPHILS % (AUTO) 6.6 %; HGB - HEMOGLOBIN 12.3 g/dL (12.0-16.0); LYMPHOCYTES # (AUTO) 1.8 10^3/uL (1.5-3.5); MEAN CORPUSCULAR HEMOGLOBIN 30.4 pg (27.0-31.0); MEAN CORPUSCULAR VOLUME 92.3 fL (81.0-99.0); MEAN PLATELET VOLUME 10.4 fL (7.9-10.8); MONOCYTES # (AUTO) 0.4 10^3/uL (0.0-1.0); NEUTROPHILS # (AUTO) 1.3 10^3/uL (1.5-6.6); PLT - PLATELET COUNT 248 10^3/uL (130-450); RED BLOOD COUNT 4.04 10^6/uL (4.20-5.40); RED CELL DISTRIBUTION WIDTH 12.3 % (12.0-15.0); WHITE BLOOD COUNT 3.8 x10^3/uL (4.8-10.8)
[2019-05-03 19:33] LABS: ALBUMIN 4.2 g/dL (3.2-5.5); ALBUMIN/GLOBULIN RATIO 1.5 (1.0-2.2); BILIRUBIN,TOTAL 0.6 mg/dL (0.2-1.0); CALCIUM 10.2 mg/dL (8.5-10.3); CREATININE 0.9 mg/dL (0.4-1.0)
== END 2019-05-03 23:59 ==
LOC: LAB.WC 08:00
PROVIDERS: ATTEND Family Medicine
DX: R10.9 Unspecified abdominal pain (principal)
CPT/HCPCS: 36415; 80053; 82150; 83690; 85025

== ENCOUNTER 2019-05-22 16:40 | Outpatient (CLI) | payer MEDICARE, OTHER ==
--- NOTE | 2019-05-23 15:02 | Ultrasound Report ---
Reason: ABDOMINAL PAIN Procedure Date: 05/22/2019 Accession Number: [id number] / [id number] Procedure: US - Abdomen Complete CPT Code: FULL RESULT: EXAM: ABDOMEN ULTRASOUND EXAM DATE: 05/22/2019 05:47 PM. CLINICAL HISTORY: ABDOMINAL PAIN. Right nephrectomy 1975 COMPARISON: ABDOMEN/PELVIS W/O 06/15/2018 7:52 AM. TECHNIQUE: Real-time scanning was performed with static images obtained. FINDINGS: Liver: Normal in size and heterogeneous in echotexture. 16.3 cm. Main portal vein flow: Hepatopetal. Gallbladder: Normal. No stones, wall thickening, or sonographic Triana's sign. Biliary System: Common bile duct measures 4 mm. No intrahepatic or extrahepatic ductal dilatation. Pancreas: Imaged portion is unremarkable. Kidneys: Right: Surgically absent Left: 12.3 cm longitudinally. Normal. No contour-deforming mass, stones, or hydronephrosis. Spleen: 9 cm. Normal in size and echotexture. Aorta and Inferior Vena Cava: Unremarkable. Free fluid: None. IMPRESSION: 1. Absent right kidney. 2. No gallstones. 3. No acute findings in the abdomen. RADIA
== END 2019-05-22 16:41 | disposition home or self-care (01) ==
LOC: DI 16:40
PROVIDERS: ATTEND Family Medicine
DX: R10.9 Unspecified abdominal pain (principal); Z90.5 Acquired absence of kidney
CPT/HCPCS: 76700

== ENCOUNTER 2019-09-01 11:54 | Outpatient (CLI) | payer MEDICARE, OTHER ==
[2019-09-01] MEDS ORDERED: IOVERSOL 320 50 ML VIAL ONE (11:57)
[2019-09-01] MEDS ORDERED: IOVERSOL 320 100 ML VIAL IVP ONE (11:57)
[2019-09-01 12:30] LABS: ALBUMIN 4.3 g/dL (3.2-5.5); ALBUMIN/GLOBULIN RATIO 1.5 (1.0-2.2); BILIRUBIN,TOTAL 0.8 mg/dL (0.2-1.0); CALCIUM 9.7 mg/dL (8.5-10.3); TOTAL PROTEIN 7.1 g/dL (6.7-8.2)
[2019-09-01] MEDS: IOVERSOL 320 100 ML VIAL IVP ONE (14:29)
[2019-09-01] MEDS: IOVERSOL 320 50 ML VIAL PO ONE (14:29)
--- NOTE | 2019-09-03 00:24 | CT Report ---
Reason: ABD PAIN, ABN STOOL TEST, + COLOGUARD Procedure Date: 09/01/2019 Accession Number: [id number] / [id number] Procedure: CT - Abdomen/Pelvis W CPT Code: Final Report FULL RESULT: EXAM: CT ABDOMEN AND PELVIS EXAM DATE: 09/01/2019 01:35 PM CLINICAL HISTORY: Abdomen pain. Positive Cologuard. COMPARISONS: ABDOMEN/PELVIS W/O 06/15/2018 7:52 AM. TECHNIQUE: Routine helical CT imaging was performed through the abdomen and pelvis. IV contrast: 100 mL Optiray 320. Enteric contrast: Yes. Reconstructions: Coronal and sagittal. In accordance with CT protocol optimization, one or more of the following dose reduction techniques were utilized for this exam: automated exposure control, adjustment of mA and/or KV based on patient size, or use of iterative reconstructive technique. FINDINGS: Lung Bases: Unremarkable. Liver: Normal. No masses. Gallbladder/Bile Ducts: Unremarkable. Spleen: Normal. Pancreas: Normal. Adrenal Glands: Normal. Kidneys: Absent right kidney. Unremarkable left kidney. Peritoneal Cavity/Bowel: Diverticulosis. No free fluid, free air or adenopathy. No masses or acute inflammatory process. Nonvisualized appendix. Pelvic Organs: Hysterectomy. 3.6 x 3.6 x 4.1 cm right adnexal simple cyst. Unremarkable bladder. Vasculature: No aneurysms or other significant abnormality. Bones: No significant abnormality. Other: None. IMPRESSION: 1. Diverticulosis without diverticulitis or other acute bowel abnormality. 2. Mild increase in size of right adnexal simple cyst. 3. Absent right kidney. RADIA
== END 2019-09-01 11:55 | disposition home or self-care (01) ==
LOC: DI 11:54
PROVIDERS: ATTEND Family Medicine
DX: R10.9 Unspecified abdominal pain (principal); R85.9 Unspecified abnormal finding in specimens from digestive organs and abdominal cavity; K57.30 Diverticulosis of large intestine without perforation or abscess without bleeding; N83.8 Other noninflammatory disorders of ovary, fallopian tube and broad ligament; Z90.5 Acquired absence of kidney
CPT/HCPCS: 36415; 74177; 80053; Q9967

== ENCOUNTER 2019-10-26 07:00 | Outpatient (CLI) | payer MEDICARE, OTHER | END 2019-10-26 23:59 | disposition home or self-care (01) | LOC: LAB.R 07:00 | PROVIDERS: ATTEND Obstetrics & Gynecology | DX: R30.0 Dysuria (principal) | CPT/HCPCS: 87077; 87086; 87181 ==

== ENCOUNTER 2020-05-05 08:00 | Outpatient (CLI) | payer MEDICARE ==
[2020-05-05 18:29] LABS: BASOPHILS # (AUTO) 0.1 10^3/uL (0.0-0.1); BASOPHILS % (AUTO) 1.5 %; EOSINOPHILS # (AUTO) 0.3 10^3/uL (0.0-0.7); EOSINOPHILS % (AUTO) 6.7 %; HGB - HEMOGLOBIN 11.7 g/dL (12.0-16.0); LYMPHOCYTES # (AUTO) 1.4 10^3/uL (1.5-3.5); LYMPHOCYTES % (AUTO) 35.2 %; MEAN CORPUSCULAR HEMOGLOBIN 29.4 pg (27.0-31.0); MEAN CORPUSCULAR HGB CONC 33.1 g/dL (32.0-36.0); MEAN CORPUSCULAR VOLUME 88.9 fL (81.0-99.0); MEAN PLATELET VOLUME 9.2 fL (7.9-10.8); MONOCYTES # (AUTO) 0.4 10^3/uL (0.0-1.0); MONOCYTES % (AUTO) 8.9 %; NEUTROPHILS # (AUTO) 1.9 10^3/uL (1.5-6.6); NEUTROPHILS % (AUTO) 47.5 %; PLT - PLATELET COUNT 336 10^3/uL (130-450); RED BLOOD COUNT 3.98 10^6/uL (4.20-5.40); RED CELL DISTRIBUTION WIDTH 12.6 % (12.0-15.0); WHITE BLOOD COUNT 4.1 x10^3/uL (4.8-10.8)
[2020-05-05 18:30] LABS: CALCIUM 10.3 mg/dL (8.5-10.3); CREATININE 0.7 mg/dL (0.4-1.0)
== END 2020-05-05 23:59 | disposition home or self-care (01) ==
LOC: LAB.WCP 08:00
PROVIDERS: ATTEND Family Medicine
DX: E78.1 Pure hyperglyceridemia (principal); K21.9 Gastro-esophageal reflux disease without esophagitis
CPT/HCPCS: 36415; 80048; 85025

== ENCOUNTER 2020-05-30 02:50 | Emergency (ER) | payer MEDICARE ==
--- NOTE | 2020-05-30 02:54 | ED Physician Documentation ---
History of Present Illness - Stated complaint Stated Complaint: NECK/BACK PAIN - History obtained from History obtained from: Patient - Additonal information Additional information: The patient is an 80-year-old female presents at approximately 3 in the morning with chief complaint of jaw pain abdominal pain and back pain she reports she has had these episodes about once a month over the last several years and initially started after she had a flu shot 5 years ago 2 years ago she got a flu shot and presented to the emergency department later that day with what she described as the exact same symptoms she is presenting with tonight to include jaw pain abdominal pain and back pain. She was admitted to the hospital at that time and observed for serial cardiac enzymes were negative as well as a negative CT of the abdomen and pelvis negative chest x-ray and negative lab work she reports that her symptoms eventually resolved after she received a dose of Dilaudid in the emergency department. She denies any history of DC or stroke s he is had a previous appendectomy she also had a kidney removed at age 35.She denies any fevers or syncope or cough. Review of Systems Constitutional: reports: Reviewed and negative Eyes: reports: Reviewed and negative Ears: reports: Reviewed and negative Nose: reports: Reviewed and negative Throat: reports: Other (jaw pain) Cardiac: reports: Reviewed and negative Respiratory: reports: Reviewed and negative GI: reports: Abdominal Pain : reports: Reviewed and negative Skin: reports: Reviewed and negative Musculoskeletal: reports: Back pain Neurologic: reports: Reviewed and negative Psychiatric: reports: Reviewed and negative Endocrine: reports: Reviewed and negative Immunocompromised: reports: Reviewed and negative PD PAST MEDICAL HISTORY - Past Medical History Cardiovascular: Hypertension, High cholesterol Respiratory: Pneumonia, Other Neuro: None Endocrine/Autoimmune: None GI: GERD 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 : Chronic bladder infection, Nocturia, Frequency HEENT: Chronic sinusitis Psych: None Musculoskeletal: Osteoarthritis - Past Surgical History Past Surgical History: Yes General: Appendectomy, Other Ortho: 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 arthroplasty /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 HEENT: Tonsil/Adenoidectomy - Present Medications Home Medications: Ambulatory Orders Medication Instructions Recorded Confirmed Chlorthalidone 25 mg PO DAILY 06/15/18 02/26/19 Fluticasone [Flonase] 2 spray VIKA DAILY PRN 06/15/18 02/26/19 Oxybutynin Chloride [Ditropan Xl] 10 mg PO DAILY 06/15/18 02/26/19 Ropinirole HCl 1 mg PO QPM 06/15/18 02/26/19 Rosuvastatin Calcium 10 mg PO QPM 06/15/18 02/26/19 gemfibroziL [Gemfibrozil] 600 mg PO 0730,1630 06/15/18 02/26/19 lisinopriL [Lisinopril] 20 mg PO DAILY 06/15/18 02/26/19 Docusate Sodium 100 mg PO DAILY #30 capsule 04/29/20 Famotidine 20 mg PO DAILY #30 tablet 04/29/20 Sucralfate 1 gm PO TID #30 tablet 04/29/20 diazePAM [Valium] 5 mg PO BID PRN #4 tablet 05/30/20 - Allergies Allergies/Adverse Reactions: Allergies Allergy/AdvReac Type Severity Reaction Status Date / Time amoxicillin [From Augmentin] AdvReac Emesis Verified 05/30/20 03:02 clavulanic acid AdvReac Emesis Verified 05/30/20 03:02 [From Augmentin] Sulfa (Sulfonamide AdvReac Nausea Verified 05/30/20 03:02 Antibiotics) hd fluzone Allergy Unknown Uncoded 05/02/20 07:11 - Social History Does the pt smoke?: No Smoking Status: Never smoker Does the pt drink ETOH?: Yes Does the pt have substance abuse?: No - Immunizations Immunizations are current?: Yes - POLST Patient has POLST: No POLST Status: Full Code PD ED PE NORMAL - Vitals Vital signs reviewed: Yes - General General: Alert and oriented X 3, No acute distress, Well developed/nourished - HEENT HEENT: Atraumatic, PERRL, EOMI, Ears normal, Moist mucous membranes, Pharynx benign, Dentition benign, Other (There is no obvious lesions in the mouth the floor the mouth is soft. Range of motion of the TMJ joints no crepitus no swelli ng no tenderness to palpation. No lymphadenopathy) - Neck Neck: Supple, no meningeal sign, No adenopathy, Thyroid normal, No JVD - Cardiac Cardiac: RRR, No murmur, Strong equal pulses - Respiratory Respiratory: No respiratory distress, Clear bilaterally - Abdomen Abdomen: Normal bowel sounds, Soft, Non distended, No organomegaly, Other (The abdomen is diffusely tender but there is no surgical signs currently she has normoactive bowel sounds and there is no midline abdominal pulsatile mass) - Back Back: No CVA TTP, No spinal TTP - Derm Derm: Normal color, Warm and dry, No rash - Extremities Extremities: No deformity, No tenderness to palpate, Normal ROM s pain, No edema, No calf tenderness / cord - Neuro Neuro: Alert and oriented X 3 - Psych Psych: Normal mood, Normal affect Results - Vitals Vitals: Vital Signs - 24 hr 05/30/20 05/30/20 05/30/20 03:00 04:02 04:39 Temperature 36.9 C Heart Rate 74 52 L 55 L Respiratory 17 15 16 Rate Blood Pressure 170/75 H 147/75 H 130/65 O2 Saturation 99 97 98 Oxygen O2 Source Room air - EKG (time done) 03:18 Rate: Other (no stemi) - Labs Labs: Laboratory Tests 05/30/20 05/30/20 05/30/20 03:10 03:10 03:10 WBC 3.5 L RBC 3.96 L Hgb 12.2 Hct 36.1 L MCV 91.2 MCH 30.8 MCHC 33.8 RDW 13.2 Plt Count 223 MPV 9.3 Neut # (Auto) 1.4 L Lymph # (Auto) 1.6 Daggett # (Auto) 0.3 Eos # (Auto) 0.2 Baso # (Auto) 0.0 Absolute Nucleated RBC 0.00 Nucleated RBC % 0.0 PT 12.1 INR 1.1 APTT 35.2 H Sodium 139 Potassium 4.2 Chloride 106 Carbon Dioxide 24 Anion Gap 9.0 BUN 20 Creatinine 0.9 Estimated GFR (MDRD) 60 L Glucose 111 H Lactic Acid Calcium 9.6 Total Bilirubin 0.6 AST 17 ALT 18 Alkaline Phosphatase 77 Total Creatine Kinase 61 Troponin I High Sens B-Natriuretic Peptide Total Protein 6.6 L Albumin 4.1 Globulin 2.5 Albumin/Globulin Ratio 1.6 Lipase 32 05/30/20 05/30/20 05/30/20 03:10 03:10 03:30 WBC RBC Hgb Hct MCV MCH MCHC RDW Plt Count MPV Neut # (Auto) Lymph # (Auto) Daggett # (Auto) Eos # (Auto) Baso # (Auto) Absolute Nucleated RBC Nucleated RBC % PT INR APTT Sodium Potassium Chloride Carbon Dioxide Anion Gap BUN Creatinine Estimated GFR (MDRD) Glucose Lactic Acid 0.9 Calcium Total Bilirubin AST ALT Alkaline Phosphatase Total Creatine Kinase Troponin I High Sens 3.3 B-Natriuretic Peptide 57 Total Protein Albumin Globulin Albumin/Globulin Ratio Lipase - Rads (name of study) 00:00 Radiology: See rad report PD MEDICAL DECISION MAKING - ED course Complexity details: reviewed old records, reviewed results, re-evaluated patient, d/w patient, d/w family ED course: 80-year-old female with complaint of jaw pain abdominal pain and back pain for which she was seen here approximately 2 years ago she reports she has these episodes about once a month and came in [facility] she reports many years ago she had a flu shot and ever since then she has had this reaction. She did not receive a flu shot this year. When she was here 2 years ago she was admitted to the hospital and had an extensive work-up that revealed no specific answer for the etiology of her symptoms. Patient will again undergo testing in the emergency department to look for the etiology of the cause of her jaw back and abdominal pain. Patient was reevaluated multiple times her symptoms have resolved at this point CT scan the abdomen and pelvis is unremarkable as well as chest x-ray, EKG, troponin and other labs to include CBC and CMP. I did offer to admit this patient for further observation and testing however she would like to be discharged home she has medical decision-making capability capacity and assumes any possible adverse outcome such as cardiac arrest. Departure - Departure Disposition: 01 Home, Self Care Clinical Impression: Jaw pain Back pain Qualifiers: Back pain location: back pain in unspecified location Chronicity: unspecified Back pain laterality: unspecified Qualified Code(s): M54.9 - Dorsalgia, unspecified Abdominal pain Qualifiers: Abdominal location: unspecified location Qualified Code(s): R10.9 - Unspecified abdominal pain Condition: Stable Instructions: ED Abdominal Pain Unkn Cause Follow-Up: Saeid Calvert MD [Primary Care Provider] - Prescriptions: diazePAM [Valium] 5 mg PO BID PRN #4 tablet PRN Reason: Spasms Comments: Please follow-up with your primary care provider today. You may use the prescription of Valium as directed for the next 1 to 2 days. Return to the emergency department for worsening pain fevers or any concerns. Discharge Date/Time: 05/30/20 04:51
[2020-05-30] MEDS ORDERED: SODIUM CHLORIDE 0.9% 1,000 ML IV STA (03:18)
[2020-05-30] MEDS ORDERED: diazePAM INJ 5 MG/ML SYRINGE IVP STA (03:20)
[2020-05-30 03:25] LABS: BASOPHILS % (AUTO) 0.9 %; EOSINOPHILS # (AUTO) 0.2 10^3/uL (0.0-0.7); EOSINOPHILS % (AUTO) 6.5 %; HGB - HEMOGLOBIN 12.2 g/dL (12.0-16.0); LYMPHOCYTES # (AUTO) 1.6 10^3/uL (1.5-3.5); LYMPHOCYTES % (AUTO) 45.2 %; MEAN CORPUSCULAR HEMOGLOBIN 30.8 pg (27.0-31.0); MEAN CORPUSCULAR HGB CONC 33.8 g/dL (32.0-36.0); MEAN CORPUSCULAR VOLUME 91.2 fL (81.0-99.0); MEAN PLATELET VOLUME 9.3 fL (7.9-10.8); MONOCYTES # (AUTO) 0.3 10^3/uL (0.0-1.0); MONOCYTES % (AUTO) 8.2 %; NEUTROPHILS # (AUTO) 1.4 10^3/uL (1.5-6.6); NEUTROPHILS % (AUTO) 38.9 %; PLT - PLATELET COUNT 223 10^3/uL (130-450); RED BLOOD COUNT 3.96 10^6/uL (4.20-5.40); RED CELL DISTRIBUTION WIDTH 13.2 % (12.0-15.0); WHITE BLOOD COUNT 3.5 x10^3/uL (4.8-10.8)
[2020-05-30 03:31] LABS: INR 1.1 (0.8-1.2); PT - PROTHROMBIN TIME 12.1 secs (9.9-12.6)
[2020-05-30 03:38] LABS: PARTIAL THROMBOPLASTIN TIME 35.2 secs (24.9-33.3)
[2020-05-30 03:40] LABS: ALBUMIN 4.1 g/dL (3.2-5.5); ALBUMIN/GLOBULIN RATIO 1.6 (1.0-2.2); BILIRUBIN,TOTAL 0.6 mg/dL (0.2-1.0); CALCIUM 9.6 mg/dL (8.5-10.3); CREATININE 0.9 mg/dL (0.4-1.0); TOTAL PROTEIN 6.6 g/dL (6.7-8.2)
[2020-05-30 04:41] VITALS: BP 130/65
--- NOTE | 2020-05-30 08:25 | CT Report ---
PROCEDURE: Abdomen/Pelvis WO INDICATIONS: abd pain TECHNIQUE: Noncontrast 5 mm thick sections acquired from the diaphragms to the symphysis. 5 mm coronal and sagi ttal reformats were then performed. For radiation dose reduction, the following was used: automated exposure control, adjustment of mA and/or kV according to patient size. COMPARISON: None. FINDINGS: Image quality: Excellent. ABDOMEN: Lung bases: Scattered subsegmental scarring/atelectasis. No acute consolidation. Heart size is nor mal. Solid organs: Liver and spleen are normal in size. Gallbladder negative Pancreas is normal in cont ours. No adrenal nodules. No hydronephrosis. The right kidney is absent. Peritoneum and bowel: Unenhanced bowel loops demonstrate normal wall thickness and caliber. No free fluid or air. Colonic diverticulosis incidentally noted without evidence of acute inflammation. Nodes and vessels: No retroperitoneal or mesenteric adenopathy by size criteria. Aorta and inferior vena cava are normal in caliber. Miscellaneous: No ventral hernias. PELVIS: Unchanged appearance of right adnexal cystic lesion, for example image 67/3 measuring approximately 3 .7 x 3.4 cm, still technically indeterminate etiology. Cystic ovarian neoplasm cannot excluded. Miscellaneous: No inguinal hernias or adenopathy. Bones: No suspicious bony lesions. No vertebral body compression fractures. IMPRESSION: No acute abnormality. Right adnexal cystic lesion grossly unchanged since the prior study however still technically indeter minate. Recommend continued surveillance with ultrasound to document longer term stability, or at cli nical discretion, laparoscopic evaluation could be performed. Findings are concordant with the preliminary study interpretation provided at the time of the study. Reviewed by: Raheem Urrutia MD on 05/30/2020 8:24 AM PDT Approved by: Raheem Urrutia MD on 05/30/2020 8:24 AM PDT Station ID: [id number]
--- NOTE | 2020-05-30 08:30 | XRAY Report ---
PROCEDURE: Chest 1 View X-Ray INDICATIONS: Chest pain. TECHNIQUE: One view of the chest was acquired. COMPARISON: 06/15/2018 FINDINGS: Surgical changes and devices: Bilateral shoulder arthroplasties.. Lungs and pleura: No pleural effusions or pneumothorax. Lungs are clear. Mediastinum: Mediastinal contours appear normal. Heart size is normal. Bones and chest wall: No suspicious bony lesions. Overlying soft tissues appear unremarkable. IMPRESSION: No acute cardiopulmonary disease process. Reviewed by: Anitra Henriquez MD, PhD on 05/30/2020 8:29 AM PDT Approved by: Anitra Henriquez MD, PhD on 05/30/2020 8:29 AM PDT Station ID: [id number]
== END 2020-05-30 04:51 | disposition home or self-care (01) ==
LOC: ED 02:50
DX: R68.84 Jaw pain (principal); R10.9 Unspecified abdominal pain; M54.9 Dorsalgia, unspecified; I10 Essential (primary) hypertension; E78.00 Pure hypercholesterolemia, unspecified
CPT/HCPCS: 36415; 71045; 74176; 80053; 82550; 83605; 83690; 83880; 84484; 85025; 85610; 85730; 93005; 96374; 99285